=== PATIENT | female | born 1965 | race Caucasian/White ===

== ENCOUNTER → 2017-11-04 | Outpatient (CLI) | payer MEDICAID | LOC: FIMAGING 15:34 | PROVIDERS: ATTEND Family Medicine | DX: M25.842 Other specified joint disorders, left hand (principal) ==

== ENCOUNTER → 2017-11-26 | Outpatient (CLI) | payer MEDICAID | LOC: FIMAGING 13:22 | PROVIDERS: ATTEND Family Medicine | DX: M18.12 Unilateral primary osteoarthritis of first carpometacarpal joint, left hand (principal); M19.032 Primary osteoarthritis, left wrist; M65.842 Other synovitis and tenosynovitis, left hand ==